=== PATIENT | female | born 1960 | race Caucasian/White ===

== ENCOUNTER 2023-12-24 23:44 | Emergency (ER) | payer BC ==
[2023-12-25 01:05] LABS: #Basophils 0.03 10x3/uL (0.0-0.2); %Basophils 0.4 % (0.0-1.0); %Eosinophils 0.4 % (0.0-10.0); %Lymphocytes 15.5 % (21.0-51.0); %Monocytes 6.1 % (0.0-10.0); %Neutrophils 77.2 % (42.0-75.0); Hematocrit 35.6 % (36.0-47.0); Hemoglobin 11.7 g/dL (12.0-16.0); Mean Corpuscular HGB CONC 32.9 g/dL (32.0-36.0); Mean Corpuscular Hemoglobin 31.2 pg (27.0-31.0); Mean Corpuscular Volume 94.9 fL (78.0-98.0); Mean Platelet Volume 9.7 fL (7.4-10.4); Platelet Count 386 10x3/uL (130-400); RBC Distribution Width 14.4 % (11.5-14.5); Red Blood Cell (RBC) Count 3.75 mill/uL (4.20-5.40)
[2023-12-25 01:20] LABS: ALT (SGPT) 17 U/L (8-55); AST (SGOT) 13 U/L (5-34); Albumin 3.2 g/dL (3.4-4.8); Alkaline Phosphatase 83 U/L (40-110); Anion Gap 15 mmol/L (10-20); BUN (Urea Nitrogen) 28 mg/dL (9.8-20.1); Bilirubin, Total 0.4 mg/dL (0.2-1.2); Calc. Creatinine Clearance 0 mL/min (70-130); Calcium 9.4 mg/dL (7.8-10.44); Carbon Dioxide 17 mmol/L (23-31); Chloride 111 mmol/L (98-107); Estimated GFR 74; Globulin 3.1 g/dL (2.4-3.5); Glucose 251 mg/dL (80-115); Potassium 3.9 mmol/L (3.5-5.1); Protein, Total 6.3 g/dL (5.8-8.1); Sodium 139 mmol/L (136-145)
[2023-12-25 01:25] LABS: INR-International Normal Ratio 0.9; Prothrombin Time 12.5 sec (12.0-14.7)
[2023-12-25 01:37] LABS: PTT 22.3 sec (22.9-36.1)
[2023-12-25] MEDS ORDERED: Oxymetazoline HCl 0.05% (30 ML BOT) ONE (02:28)
== END 2023-12-25 02:08 | disposition home or self-care (01) ==
LOC: ERS 23:44
DX: R04.0 Epistaxis (principal); F17.210 Nicotine dependence, cigarettes, uncomplicated
CPT/HCPCS: 36415; 80053; 85025; 85610; 85730

== ENCOUNTER 2023-12-25 13:25 | Emergency (ER) | payer BC ==
[2023-12-25 14:22] LABS: #Basophils 0.03 10x3/uL (0.0-0.2); %Basophils 0.3 % (0.0-1.0); %Lymphocytes 24.7 % (21.0-51.0); %Monocytes 8.1 % (0.0-10.0); %Neutrophils 65.5 % (42.0-75.0); Hematocrit 33.1 % (36.0-47.0); Hemoglobin 10.8 g/dL (12.0-16.0); Mean Corpuscular HGB CONC 32.6 g/dL (32.0-36.0); Mean Corpuscular Hemoglobin 31.4 pg (27.0-31.0); Mean Corpuscular Volume 96.2 fL (78.0-98.0); Platelet Count 385 10x3/uL (130-400); RBC Distribution Width 14.5 % (11.5-14.5); Red Blood Cell (RBC) Count 3.44 mill/uL (4.20-5.40)
[2023-12-25 14:39] LABS: ALT (SGPT) 14 U/L (8-55); AST (SGOT) 14 U/L (5-34); Alkaline Phosphatase 70 U/L (40-110); Anion Gap 14 mmol/L (10-20); BUN (Urea Nitrogen) 23 mg/dL (9.8-20.1); Bilirubin, Total 0.7 mg/dL (0.2-1.2); Calc. Creatinine Clearance 0 mL/min (70-130); Calcium 8.7 mg/dL (7.8-10.44); Carbon Dioxide 18 mmol/L (23-31); Chloride 111 mmol/L (98-107); Estimated GFR 83; Globulin 3.1 g/dL (2.4-3.5); Glucose 164 mg/dL (80-115); Potassium 3.5 mmol/L (3.5-5.1); Protein, Total 6.1 g/dL (5.8-8.1); Sodium 139 mmol/L (136-145)
[2023-12-25 14:42] LABS: PTT 21.3 sec (22.9-36.1)
[2023-12-25] MEDS ORDERED: Ondansetron ODT 4 MG TAB ONE ×2 (15:06→17:42)
[2023-12-25] MEDS ORDERED: Clindamycin 150 MG CAP ONE (17:43)
[2023-12-25] MEDS ORDERED: HYDROcodone/Acetaminophen 5/325 mg Tablet ONE (18:02)
[2023-12-25] MEDS ORDERED: Phenylephrine 1% Nasal Spray 15 ML BOT L NARE SCH (18:15)
== END 2023-12-25 19:03 | disposition home or self-care (01) ==
LOC: ERS 13:25
DX: R04.0 Epistaxis (principal); D64.9 Anemia, unspecified; F17.210 Nicotine dependence, cigarettes, uncomplicated; Z55.6 Problems related to health literacy
CPT/HCPCS: 30901; 36415; 70450; 80053; 85025; 85610; 85730; 99283; Q0162

== ENCOUNTER 2024-09-21 09:09 | Outpatient (CLI) | payer BC | END 2024-09-21 09:10 | disposition home or self-care (01) | LOC: BICCT 09:09 | PROVIDERS: ATTEND Nurse Practitioner Family | DX: R10.9 Unspecified abdominal pain (principal); R35.0 Frequency of micturition | CPT/HCPCS: 74176 ==

== ENCOUNTER 2025-03-13 15:57 | Inpatient (IN) | payer BC ==
[~2025-03-13 15:57] MED LIST: Iopamidol-370 76% 500 ML MDV (1 ML CHARGE) ONE
[2025-03-13 17:02] LABS: CAUTI Indications for Culture Dysuria,urgency,freq; Glucose, Urine (Dipstick) 100 mg/dL (Negative); Leukocyte Negative Leu/uL (Negative); Protein, Urine (Dipstick) 50 mg/dL (Neg-Trace); RBC/HPF 0-3 HPF (0-3); Specific Gravity, Urine 1.037 (1.002-1.036); WBC/HPF 0-3 HPF (0-3)
[2025-03-13 17:04] LABS: Bacteria/HPF 1+ HPF (None Seen); Urine Culture Reflex No No
[2025-03-13] MEDS ORDERED: Cefepime 2 GM VIAL ONE (17:25)
[2025-03-13] MEDS ORDERED: Magnesium 2 GM/50 ML BAG (IN WATER) ONE (17:25)
[2025-03-13 17:31] LABS: #Basophils 0.07 10x3/uL (0.0-0.2); #Eosinophils 0.09 10x3/uL (0.0-0.7); #Monocytes 1.56 10x3/uL (0.11-0.59); #Neutrophils 11.37 10x3/uL (1.40-6.50); %Basophils 0.5 % (0.0-1.0); %Eosinophils 0.6 % (0.0-10.0); %Lymphocytes 11.0 % (21.0-51.0); %Monocytes 10.6 % (0.0-10.0); %Neutrophils 76.9 % (42.0-75.0); Hematocrit 38.2 % (36.0-47.0); Hemoglobin 11.9 g/dL (12.0-16.0); Mean Corpuscular Hemoglobin 29.2 pg (27.0-31.0); Mean Corpuscular Volume 93.9 fL (78.0-98.0); Platelet Count 171 10x3/uL (130-400); Red Blood Cell (RBC) Count 4.07 mill/uL (4.20-5.40); White Blood Cell (WBC) Count 14.77 10x3/uL (4.8-10.8)
[2025-03-13 17:45] LABS: INR-International Normal Ratio 1.3; PTT 30.5 sec (22.9-36.1); Prothrombin Time 15.9 sec (12.0-14.7)
[2025-03-13 17:49] LABS: ALT (SGPT) Less than 7 U/L (Less than 34); AST (SGOT) 27 U/L (11-34); Acetaminophen Less than 10 mcg/mL (Less than 10); Albumin 3.0 g/dL (3.1-4.5); Alkaline Phosphatase 88 U/L (40-110); Anion Gap 17 mmol/L (10-20); BUN (Urea Nitrogen) 16 mg/dL (9.8-20.1); Bilirubin, Total 1.1 mg/dL (0.3-1.2); Calc. Creatinine Clearance 0 mL/min (70-130); Calcium 9.2 mg/dL (7.8-10.44); Carbon Dioxide 21 mmol/L (23-31); Chloride 104 mmol/L (98-107); Globulin 4.3 g/dL (2.4-3.5); Glucose 142 mg/dL (80-115); Magnesium 1.9 mg/dL (1.6-2.6); Potassium 4.8 mmol/L (3.5-5.1); Salicylate Less than 8.0 mg/dL (Less than 8.0); Sodium 137 mmol/L (136-145)
[2025-03-13 17:59] LABS: Cocaine Metabolite Screen Negative (Negative); THC/Cannabinoid Screen Negative (Negative); Tricyclic Screen Negative (Negative)
[2025-03-13] MEDS ORDERED: Albuterol 2.5 MG (0.5 mL) NEB ONE (18:03)
[2025-03-13] MEDS ORDERED: Ipratropium Bromide 2.5 ml Neb ONE (18:03)
[2025-03-13] MEDS ORDERED: Ondansetron PF 4 MG/2 ML Vial ONE (18:22)
[2025-03-13] MEDS: Vancomycin (BATCH) 2.5 GM in Premix 1 BAG IVPB SCH (18:30)
[2025-03-13] MEDS ORDERED: Furosemide 40 MG (4 mL) VIAL ONE ×2 (18:58→21:45)
[2025-03-13 19:13] LABS: Actual Bicarbonate (HCO3v) 18.7 mEq/L (22-28); Base Excess -5.3 mEq/L (-2.0 to +3.0); Calcium, Ionized (venous) 1.06 mmol/L (1.16-1.32); Chloride (VBG) 105 mmol/L (98-106); Hematocrit-VBG 37 % (36.0-47.0); Hemoglobin (Hb) 12.6 g/dL (11.7-16.0); Potassium (VBG) 4.08 mmol/L (3.70-5.30); Sodium 137 mmol/L (133-146)
[2025-03-13] MEDS ORDERED: Digoxin 0.5 MG/2 ML AMP ONE (19:25)
[2025-03-13] MEDS ORDERED: Enoxaparin 30 MG (0.3 mL) SYRINGE ONE (19:36)
[2025-03-13] MEDS ORDERED: Enoxaparin 100 MG (1 mL) SYRINGE ONE (19:36)
[2025-03-13] MEDS ORDERED: Ondansetron PF 4 MG/2 ML Vial IVP PRN (21:15)
[2025-03-13] MEDS: Furosemide 40 MG (4 mL) VIAL SLOW IVP SCH (21:56)
[2025-03-13] MEDS ORDERED: Azithromycin 500 MG VIAL ONE (22:05)
[2025-03-13] MEDS: Azithromycin 500 MG in Sodium Chloride 0.9% 250 ML 250 ML IVPB SCH (22:16)
[2025-03-14] MEDS: Azithromycin 500 MG in Syringe 0 ML IVPB SCH (00:14)
[2025-03-14] MEDS: cefTRIAXone\\ROCEPHIN 1 GM in Sodium Chloride 0.9% 100 ML IVPB SCH ×2 (00:15→00:26)
[2025-03-14] MEDS ORDERED: Potassium Chloride 20 MEQ in Premix 1 BAG IVPB PRN (00:30)
[2025-03-14] MEDS ORDERED: PHOS-NAK 1 PKT PACK PO PRN (00:30)
[2025-03-14] MEDS ORDERED: Magnesium Sulfate In Water 4 GM in Premix 1 BAG IVPB PRN (00:30)
[2025-03-14] MEDS ORDERED: Electrolyte Replacement Protocol 1 EACH FS SCH (00:30)
[2025-03-14 04:55] LABS: #Basophils Less than 0.03 10x3/uL (0.0-0.2); #Eosinophils Less than 0.03 10x3/uL (0.0-0.7); #Monocytes 0.37 10x3/uL (0.11-0.59); #Neutrophils 10.42 10x3/uL (1.40-6.50); %Basophils 0.2 % (0.0-1.0); %Eosinophils 0.1 % (0.0-10.0); %Lymphocytes 7.7 % (21.0-51.0); %Monocytes 3.1 % (0.0-10.0); %Neutrophils 88.2 % (42.0-75.0); Hematocrit 37.9 % (36.0-47.0); Hemoglobin 11.4 g/dL (12.0-16.0); Mean Corpuscular Hemoglobin 29.5 pg (27.0-31.0); Mean Corpuscular Volume 97.9 fL (78.0-98.0); Platelet Count 154 10x3/uL (130-400); Red Blood Cell (RBC) Count 3.87 mill/uL (4.20-5.40); White Blood Cell (WBC) Count 11.81 10x3/uL (4.8-10.8)
[2025-03-14 05:13] LABS: Anion Gap 16 mmol/L (10-20); BUN (Urea Nitrogen) 17 mg/dL (9.8-20.1); Calc. Creatinine Clearance 120 mL/min (70-130); Calcium 8.3 mg/dL (7.8-10.44); Carbon Dioxide 16 mmol/L (23-31); Chloride 106 mmol/L (98-107); Glucose 201 mg/dL (80-115); Magnesium 2.4 mg/dL (1.6-2.6); Potassium 4.4 mmol/L (3.5-5.1); Sodium 134 mmol/L (136-145)
[2025-03-14] MEDS: Furosemide 40 MG (4 mL) VIAL SLOW IVP SCH (05:55)
[2025-03-14] MEDS: FLU (Fluarix Triv) 25-26 (6MOS UP)/PF 45 MCG/0.5 ML Syringe IM ONE (07:11)
[2025-03-14] MEDS: PNEUMOC 20-VAL CONJ-DIP CRM/PF 0.5 ML SYRINGE IM ONE (07:11)
[2025-03-14] MEDS: Mupirocin 1 GM TUBE NASAL DECOLONIZATION NASAL SCH (08:57)
[2025-03-14] MEDS: Famotidine 20 MG TAB PO SCH (08:58)
[2025-03-14] MEDS: HYDROcodone/Acetaminophen 5/325 mg Tablet PO PRN (10:23)
[2025-03-15 04:51] LABS: #Basophils Less than 0.03 10x3/uL (0.0-0.2); #Eosinophils Less than 0.03 10x3/uL (0.0-0.7); #Monocytes 1.52 10x3/uL (0.11-0.59); #Neutrophils 14.33 10x3/uL (1.40-6.50); %Basophils 0.1 % (0.0-1.0); %Eosinophils 0.0 % (0.0-10.0); %Lymphocytes 6.3 % (21.0-51.0); %Monocytes 8.9 % (0.0-10.0); %Neutrophils 84.0 % (42.0-75.0); Hematocrit 34.0 % (36.0-47.0); Hemoglobin 10.3 g/dL (12.0-16.0); Mean Corpuscular Hemoglobin 29.2 pg (27.0-31.0); Mean Corpuscular Volume 96.3 fL (78.0-98.0); Platelet Count 184 10x3/uL (130-400); Red Blood Cell (RBC) Count 3.53 mill/uL (4.20-5.40); White Blood Cell (WBC) Count 17.07 10x3/uL (4.8-10.8)
[2025-03-15 05:17] LABS: Anion Gap 8 mmol/L (10-20); BUN (Urea Nitrogen) 33 mg/dL (9.8-20.1); Calc. Creatinine Clearance 89 mL/min (70-130); Calcium 8.3 mg/dL (7.8-10.44); Carbon Dioxide 21 mmol/L (23-31); Chloride 106 mmol/L (98-107); Glucose 140 mg/dL (80-115); Potassium 3.8 mmol/L (3.5-5.1); Sodium 131 mmol/L (136-145)
[2025-03-15] MEDS: Furosemide 40 MG TAB PO SCH (07:57)
[2025-03-15 08:50] LABS: Hematocrit 34.8 % (36.0-47.0); Hemoglobin 10.7 g/dL (12.0-16.0); Platelet Count 183 10x3/uL (130-400)
[2025-03-15] MEDS: Apixaban 5 MG TAB PO SCH (10:30)
[2025-03-15] MEDS: Communication Order-Pharmacy FS ONE (10:31)
[2025-03-15] MEDS: Ondansetron PF 4 MG/2 ML Vial IVP PRN (11:13)
[2025-03-16 03:30] LABS: #Basophils Less than 0.03 10x3/uL (0.0-0.2); #Eosinophils 0.13 10x3/uL (0.0-0.7); #Monocytes 1.50 10x3/uL (0.11-0.59); #Neutrophils 7.26 10x3/uL (1.40-6.50); %Basophils 0.2 % (0.0-1.0); %Eosinophils 1.2 % (0.0-10.0); %Lymphocytes 14.7 % (21.0-51.0); %Monocytes 14.3 % (0.0-10.0); %Neutrophils 69.0 % (42.0-75.0); Hematocrit 34.6 % (36.0-47.0); Hemoglobin 11.3 g/dL (12.0-16.0); Mean Corpuscular Hemoglobin 29.8 pg (27.0-31.0); Mean Corpuscular Volume 91.3 fL (78.0-98.0); Platelet Count 210 10x3/uL (130-400); Red Blood Cell (RBC) Count 3.79 mill/uL (4.20-5.40); White Blood Cell (WBC) Count 10.52 10x3/uL (4.8-10.8)
[2025-03-16 04:22] LABS: Anion Gap 16 mmol/L (10-20); BUN (Urea Nitrogen) 25 mg/dL (9.8-20.1); Calc. Creatinine Clearance 148 mL/min (70-130); Calcium 8.3 mg/dL (7.8-10.44); Carbon Dioxide 22 mmol/L (23-31); Chloride 106 mmol/L (98-107); Glucose 111 mg/dL (80-115); Potassium 3.8 mmol/L (3.5-5.1); Sodium 140 mmol/L (136-145)
[2025-03-16 06:52] VITALS: BMI 47.1
[2025-03-16] MEDS: Losartan 25 MG TAB PO SCH (10:04)
[2025-03-16] MEDS: Fioricet 325/50/40 mg Tablet PO PRN (16:02)
[2025-03-17] MEDS: Metoprolol Succinate XL 50 MG ER.TAB PO SCH (09:23)
[2025-03-17] MEDS: Losartan 25 MG TAB PO SCH (09:23)
[2025-03-17] MEDS: Ciprofloxacin Lactate/D5W 400 MG in Premix 1 BAG IVPB SCH (10:02)
[2025-03-18 05:32] LABS: Hematocrit 36.3 % (36.0-47.0); Hemoglobin 11.5 g/dL (12.0-16.0); Platelet Count 259 10x3/uL (130-400)
[2025-03-18] MEDS: Gabapentin 300 MG CAP PO SCH (20:07)
[2025-03-19 08:23] LABS: #Basophils 0.07 10x3/uL (0.0-0.2); #Eosinophils 0.76 10x3/uL (0.0-0.7); #Monocytes 1.26 10x3/uL (0.11-0.59); #Neutrophils 5.58 10x3/uL (1.40-6.50); %Basophils 0.7 % (0.0-1.0); %Eosinophils 7.9 % (0.0-10.0); %Lymphocytes 19.4 % (21.0-51.0); %Monocytes 13.2 % (0.0-10.0); %Neutrophils 58.4 % (42.0-75.0); Hematocrit 36.6 % (36.0-47.0); Hemoglobin 11.4 g/dL (12.0-16.0); Mean Corpuscular Hemoglobin 29.1 pg (27.0-31.0); Mean Corpuscular Volume 93.4 fL (78.0-98.0); Platelet Count 287 10x3/uL (130-400); Red Blood Cell (RBC) Count 3.92 mill/uL (4.20-5.40); White Blood Cell (WBC) Count 9.56 10x3/uL (4.8-10.8)
[2025-03-19 08:31] LABS: Anion Gap 13 mmol/L (10-20); BUN (Urea Nitrogen) 11 mg/dL (9.8-20.1); Calc. Creatinine Clearance 189 mL/min (70-130); Calcium 8.6 mg/dL (7.8-10.44); Carbon Dioxide 28 mmol/L (23-31); Chloride 103 mmol/L (98-107); Glucose 139 mg/dL (80-115); Potassium 3.5 mmol/L (3.5-5.1); Sodium 140 mmol/L (136-145)
[2025-03-20 05:06] LABS: #Basophils 0.06 10x3/uL (0.0-0.2); #Eosinophils 0.64 10x3/uL (0.0-0.7); #Monocytes 1.55 10x3/uL (0.11-0.59); #Neutrophils 4.65 10x3/uL (1.40-6.50); %Basophils 0.7 % (0.0-1.0); %Eosinophils 7.2 % (0.0-10.0); %Lymphocytes 21.8 % (21.0-51.0); %Monocytes 17.4 % (0.0-10.0); %Neutrophils 52.3 % (42.0-75.0); Hematocrit 37.0 % (36.0-47.0); Hemoglobin 11.2 g/dL (12.0-16.0); Mean Corpuscular Hemoglobin 28.6 pg (27.0-31.0); Mean Corpuscular Volume 94.4 fL (78.0-98.0); Platelet Count 300 10x3/uL (130-400); Red Blood Cell (RBC) Count 3.92 mill/uL (4.20-5.40); White Blood Cell (WBC) Count 8.89 10x3/uL (4.8-10.8)
[2025-03-20 05:38] LABS: Anion Gap 12 mmol/L (10-20); BUN (Urea Nitrogen) 12 mg/dL (9.8-20.1); Calc. Creatinine Clearance 166 mL/min (70-130); Calcium 9.0 mg/dL (7.8-10.44); Carbon Dioxide 26 mmol/L (23-31); Chloride 105 mmol/L (98-107); Glucose 96 mg/dL (80-115); Potassium 3.6 mmol/L (3.5-5.1); Sodium 139 mmol/L (136-145)
[2025-03-20 14:27] VITALS: BMI 45.7
[2025-03-20] MEDS: Cefdinir 300 MG CAP PO SCH (21:08)
[2025-03-21 04:38] LABS: Hematocrit 39.6 % (36.0-47.0); Hemoglobin 12.0 g/dL (12.0-16.0); Platelet Count 286 10x3/uL (130-400)
[2025-03-22] MEDS: Apixaban 5 MG TAB PO SCH (09:00)
[2025-03-22 11:40] VITALS: BP 117/69; TEMP 97.5
== END 2025-03-22 13:55 | disposition home or self-care (01) | DRG 871 ==
LOC: ERS 15:57 → ERHOLD 20:55 → CCU 23:20 → IMCU/EMU 03-14 20:06 → 2NO 03-17 10:47
PROVIDERS: ADMIT Internal Medicine; ATTEND Internal Medicine
PROC: 3E03329 Introduction of Other Anti-infective into Peripheral Vein, Percutaneous Approach (ICD-10-PCS; principal; 2025-03-13)
PROC: 5A09357 Assistance with Respiratory Ventilation, Less than 24 Consecutive Hours, Continuous Positive Airway Pressure (ICD-10-PCS; 2025-03-13)
PROC: 3E0234Z Introduction of Serum, Toxoid and Vaccine into Muscle, Percutaneous Approach (ICD-10-PCS; 2025-03-14)
PROC: 3E02340 Introduction of Influenza Vaccine into Muscle, Percutaneous Approach (ICD-10-PCS; 2025-03-14)
PROC: 0T9B70Z Drainage of Bladder with Drainage Device, Via Natural or Artificial Opening (ICD-10-PCS; 2025-03-14)
DX: A41.9 Sepsis, unspecified organism (principal); I26.99 Other pulmonary embolism without acute cor pulmonale; J18.9 Pneumonia, unspecified organism; J96.01 Acute respiratory failure with hypoxia; I50.43 Acute on chronic combined systolic (congestive) and diastolic (congestive) heart failure; Z68.42 Body mass index [BMI] 45.0-49.9, adult; E87.20 Acidosis, unspecified; M06.89 Other specified rheumatoid arthritis, multiple sites; F17.210 Nicotine dependence, cigarettes, uncomplicated; J44.9 Chronic obstructive pulmonary disease, unspecified; E66.01 Morbid (severe) obesity due to excess calories; I48.91 Unspecified atrial fibrillation; E83.42 Hypomagnesemia; Z98.890 Other specified postprocedural states; Z90.710 Acquired absence of both cervix and uterus; Z90.49 Acquired absence of other specified parts of digestive tract; Z88.1 Allergy status to other antibiotic agents; Z88.2 Allergy status to sulfonamides; Z88.0 Allergy status to penicillin; Z88.8 Allergy status to other drugs, medicaments and biological substances; Z79.899 Other long term (current) drug therapy; Z23 Encounter for immunization
CPT/HCPCS: 36415; 71045; 71275; 80048; 80053; 80306; 80307; 81001; 82805; 83036; 83605; 83735; 83880; 84443; 84484; 85014; 85018; 85025; 85049; 85610; 85730; 87040; 87086; 87428; 93005; 93306; 93970; 94760; 96365; 96366; 96368; 96375; J0456; J0692; J0696; J0744; J1160; J1650; J1940; J2060; J2405; J2919; J3373; J3475; J7050; J7611; J7644; Q9967